=== PATIENT | female | born 1980 | race Two or more races ===

== ENCOUNTER 2018-03-08 15:30 | Day surgery (SDC) | payer OTHER ==
[~2018-03-08] VITALS: Ht 162.6 cm; Wt 73.0 kg
[2018-03-08 15:58] LABS: BASOPHILS # (AUTO) 0.05 x10^3/uL (0-0.1); BASOPHILS % (AUTO) 1 % (0-1); EOSINOPHILS # (AUTO) 0.06 x10^3/uL (0-0.4); EOSINOPHILS % (AUTO) 1 % (1-7); LYMPHOCYTES # (AUTO) 3.04 x10^3/uL (1-3.4); LYMPHOCYTES % (AUTO) 28 % (22-44); MD NO; MEAN CORPUSCULAR HEMOGLOBIN 30.4 pg (27.0-34.8); MEAN CORPUSCULAR HGB CONC 34.3 g/dL (32.4-35.8); MEAN CORPUSCULAR VOLUME 88.7 fL (80-100); MEAN PLATELET VOLUME 7.9 fL (7.4-10.4); MONOCYTES # (AUTO) 0.59 x10^3/uL (0.2-0.8); MONOCYTES % (AUTO) 6 % (2-9); NEUTROPHILS # (AUTO) 6.99 x10^3/uL (1.8-6.8); NEUTROPHILS % (AUTO) 65 % (42-75); PLATELET COUNT 281 x10^3/uL (130-400); RED BLOOD COUNT 4.47 x10^6/uL (3.82-5.3); RED CELL DISTRIBUTION WIDTH 12.5 % (9.6-15.2)
[2018-03-08] MEDS ORDERED: HYDROmorphone 2 MG/ML, 1ML IVPush PRN (16:00)
[2018-03-08] MEDS ORDERED: SODIUM CHLORIDE FLUSH 10ML SYR IVF ONE (16:00)
[2018-03-08 16:09] LABS: ALANINE AMINOTRANSFERASE 26 U/L (12-78); ALBUMIN 4.2 g/dL (3.4-5.0); ANION GAP 8 mmol/L (5-15); CALCIUM 9.3 mg/dL (8.5-10.1); CHLORIDE 106 mmol/L (98-107); CREATININE 0.71 mg/dL (0.55-1.02)
[2018-03-08] MEDS ORDERED: ONDANSETRON ODT 4 MG ONE (16:09)
[2018-03-08] MEDS ORDERED: HYDROmorphone 2 MG/ML, 1ML ONE (16:10)
[2018-03-08 16:11] LABS: ALKALINE PHOSPHATASE 65 U/L (45-117); BILIRUBIN,TOTAL 0.7 mg/dL (0.2-1.0); TOTAL PROTEIN 8.3 g/dL (6.4-8.2)
[2018-03-08 16:48] LABS: MICROSCOPIC INDICATED
[2018-03-08 17:21] LABS: CULTURE INDICATED? NO
[2018-03-08] MEDS ORDERED: SODIUM CHLORIDE 0.9% 1,000 ML IV ONE ×2 (17:21→17:25)
[2018-03-08] MEDS ORDERED: SODIUM CHLORIDE FLUSH 10ML SYR IVF PRN (17:30)
[2018-03-08] MEDS ORDERED: CEFOTETAN PMX 1GM/50ML 50 ML IV ONE (17:30)
[2018-03-08] MEDS ORDERED: SODIUM CHLORIDE 0.9% 1,000ML IVBOLUS ONE (17:30)
[2018-03-08 17:38] VITALS: BP 129/71
[2018-03-08] MEDS ORDERED: CEFOTETAN PMX 1GM/50ML 50 ML ONE (17:45)
[2018-03-08] MEDS ORDERED: BUPIVACAINE/PF-EPI 0.5% 1:200K ONE (18:00)
[2018-03-08] MEDS ORDERED: FENTANYL PF 100 MCG/2ML ONE ×2 (18:22→19:10)
[2018-03-08] MEDS ORDERED: MIDAZOLAM 1 MG/ML, 2ML ONE (18:22)
[2018-03-08] MEDS ORDERED: KETOROLAC 30 MG/1 ML ONE (18:28)
[2018-03-08] MEDS ORDERED: BUPIVACAINE/PF-EPI 0.5% 1:200K IM ONE (18:43)
[2018-03-08] MEDS ORDERED: ROCURONIUM 10MG/ML,5ML ONE (18:59)
[2018-03-08] MEDS ORDERED: ONDANSETRON 2MG/ML, 2ML ONE (18:59)
[2018-03-08] MEDS ORDERED: GLYCOPYRROLATE 0.2MG/1ML, 5ML ONE (18:59)
[2018-03-08] MEDS ORDERED: SUCCINYLCHOLINE 20 MG/ML, 10ML ONE (18:59)
[2018-03-08] MEDS ORDERED: PROPOFOL 10 MG/ML, 20ML ONE (18:59)
[2018-03-08] MEDS ORDERED: CEFAZOLIN 1,000 MG ONE (18:59)
[2018-03-08] MEDS ORDERED: NEOSTIGMINE 1 MG/ML, 10ML ONE (18:59)
[2018-03-08] MEDS ORDERED: DEXAMETHASONE 4 MG/ML, 1ML ONE (18:59)
[2018-03-08] MEDS ORDERED: ALBUTEROL/IPRATROPIUM 2.5MG/0.5MG, 3 ML NPPB PRN (19:00)
[2018-03-08] MEDS ORDERED: ACETAMINOPHEN 325 MG TABLET PO PRN (19:00)
[2018-03-08] MEDS ORDERED: MEPERIDINE/PF 25MG/0.5ML IVPush PRN (19:00)
[2018-03-08] MEDS ORDERED: ONDANSETRON ODT 8 MG PO PRN (19:00)
[2018-03-08] MEDS ORDERED: HYDROmorphone 1 MG/ML, 1ML IV PRN (19:00)
[2018-03-08] MEDS ORDERED: SCOPOLAMINE PATCH, 1.5MG PATCH.TD72 TD PRN (19:00)
[2018-03-08] MEDS ORDERED: MIDAZOLAM 1 MG/ML, 2ML IV PRN (19:00)
[2018-03-08] MEDS ORDERED: PROMETHAZINE 25 MG/ML, 1ML IV PRN (19:00)
[2018-03-08] MEDS ORDERED: OXYcodone 5 MG/5 ML ORAL.SOL UDC PO PRN (19:00)
[2018-03-08] MEDS ORDERED: LABETALOL 5MG/ML, 20ML IV PRN (19:00)
[2018-03-08] MEDS ORDERED: OXYcodone 5 MG/5 ML ORAL.SOL UDC ONE (19:10)
[2018-03-08] MEDS: FENTANYL PF 100 MCG/2ML IV PRN ×2 (19:15→19:20)
[2018-03-08] MEDS ORDERED: HYDR-3240 PO (21:46)
[2018-03-08] MEDS ORDERED: MORPHINE SULFATE 4 MG/ML, 1ML IVPush PRN (22:00)
[2018-03-08] MEDS ORDERED: MORPHINE SULFATE 4 MG/ML, 1ML IV PRN (22:00)
== END 2018-03-08 21:00 | disposition home or self-care (01) ==
LOC: ED 17:20 → OR 17:21 → EDIP 17:21 → UNDOADMIN 17:21 → ED 17:41 → 4NOR 20:00 → EDIP 20:00 → OR 21:00 → UNDODISIN 22:30
PROVIDERS: ATTEND Surgery
DX: K81.0 Acute cholecystitis (principal); Z98.890 Other specified postprocedural states
CPT/HCPCS: 36415; 47562; 76700; 80053; 81001; 83690; 85025; 88304; 96372; 96374; 96375; 99285; J0330; J0690; J1100; J1170; J1885; J2250; J2405; J2704; J2710; J3010; J3490; J7030; S0074; G0378

== ENCOUNTER 2019-05-20 21:12 | Emergency (ER) | payer SELFPAY ==
[~2019-05-20] VITALS: Ht 162.6 cm; Wt 69.2 kg
[~2019-05-20 21:12] MED LIST: HYDR-3240 PO
[2019-05-20 21:49] LABS: BASOPHILS # (AUTO) 0.07 x10^3/uL (0-0.1); BASOPHILS % (AUTO) 1 % (0-1); EOSINOPHILS # (AUTO) 0.08 x10^3/uL (0-0.4); EOSINOPHILS % (AUTO) 1 % (1-7); LYMPHOCYTES # (AUTO) 4.58 x10^3/uL (1-3.4); LYMPHOCYTES % (AUTO) 46 % (22-44); MD NO; MEAN CORPUSCULAR HEMOGLOBIN 30.8 pg (27.0-34.8); MEAN CORPUSCULAR HGB CONC 33.3 g/dL (32.4-35.8); MEAN CORPUSCULAR VOLUME 92.7 fL (80-100); MONOCYTES # (AUTO) 0.71 x10^3/uL (0.2-0.8); MONOCYTES % (AUTO) 7 % (2-9); NEUTROPHILS # (AUTO) 4.53 x10^3/uL (1.8-6.8); NEUTROPHILS % (AUTO) 46 % (42-75); PLATELET COUNT 289 x10^3/uL (130-400); RED BLOOD COUNT 4.46 x10^6/uL (3.82-5.3); RED CELL DISTRIBUTION WIDTH 12.5 % (9.6-15.2)
[2019-05-20] MEDS ORDERED: LORazepam 1MG TABLET PO ONE (22:00)
[2019-05-20 22:02] LABS: ALBUMIN 4.3 g/dL (3.4-5.0); ANION GAP 2 mmol/L (5-15); CALCIUM 9.3 mg/dL (8.5-10.1); CHLORIDE 107 mmol/L (98-107); CREATININE 0.61 mg/dL (0.55-1.02)
[2019-05-20 22:06] LABS: TROPONIN I < 0.015 ng/mL (0.000-0.045)
[2019-05-20] MEDS ORDERED: LORazepam 1MG TABLET ONE (23:28)
[2019-05-20] MEDS ORDERED: IBUPROFEN 800 MG TABLET PO ONE (23:30)
[2019-05-20] MEDS ORDERED: IBUPROFEN 800 MG TABLET ONE (23:37)
[2019-05-21 00:42] VITALS: BP 136/68
== END 2019-05-21 00:45 | disposition home or self-care (01) ==
LOC: ED 23:22
DX: R07.89 Other chest pain (principal); Z90.49 Acquired absence of other specified parts of digestive tract; Z90.710 Acquired absence of both cervix and uterus
CPT/HCPCS: 36415; 71045; 80048; 82040; 84484; 85025; 93005; 99284